=== PATIENT | female | born 1955 | race Asian ===

== ENCOUNTER 2019-02-16 09:33 | Emergency (ER) | payer OTHER ==
[~2019-02-16] VITALS: Ht 152.4 cm; Wt 54.4 kg
[~2019-02-16 09:33] MED LIST: BENA20TA14; METF-370; OMEP20TA44 OR; SIMV10TA73; TRAM50TA2 OR
[2019-02-16] MEDS ORDERED: ACETAMINOPHEN 500 MG TAB PO ONE ×2 (09:43→10:15)
[2019-02-16 10:22] VITALS: BP 132/92
[2019-02-16] MEDS ORDERED: cefTRIAXone SOD 1,000 MG VL IM ONE (10:45)
== END 2019-02-16 11:36 | disposition home or self-care (01) ==
LOC: ER 09:33
DX: H66.92 Otitis media, unspecified, left ear (principal); J02.9 Acute pharyngitis, unspecified; R11.2 Nausea with vomiting, unspecified; E11.9 Type 2 diabetes mellitus without complications; E78.5 Hyperlipidemia, unspecified; I10 Essential (primary) hypertension; Z79.899 Other long term (current) drug therapy; Z79.84 Long term (current) use of oral hypoglycemic drugs
CPT/HCPCS: 81002; 96372; 99283; J0696

== ENCOUNTER 2019-05-27 23:09 | Emergency (ER) | payer OTHER ==
[~2019-05-27] VITALS: Ht 147.3 cm; Wt 52.6 kg
[2019-05-27] MEDS ORDERED: NIFEdipine 10 MG CAP PO ONE ×2 (23:30)
[2019-05-27 23:45] LABS: Basophils # (auto) 0 uL; Basophils % (auto) 0.3 % (0.0-2.0); Eosinophils # (auto) 0.2 uL; Eosinophils % (auto) 2.6 % (0.0-7.0); Hematocrit 39.7 % (36.0-46.0); Lymphocytes # (auto) 4.1 uL; Mean Corpuscular Hemoglobin 31.2 pg (28.0-32.0); Mean Corpuscular Hgb Conc. 32.8 g/dL (32.0-36.0); Monocytes # (auto) 0.5 uL; Monocytes % (auto) 5.9 % (0.0-12.0); Neutrophils # (auto) 3.3 uL; Neutrophils % (auto) 40.2 % (37.0-80.0); Platelet Count (auto) 432 10^3/uL (140-450); Red Blood Cells 4.17 10^6/uL (4.0-5.20); Red Cell Distribution Width 13.6 % (11.8-14.3); White Blood Cell 8.1 10^3/uL (4.4-10.8)
[2019-05-28 00:01] LABS: INR < 0.93 (0.9-1.15); Partial Thromboplastin Time 25.1 sec (23.64-32.05)
[2019-05-28 00:03] LABS: Alanine Aminotransferase 29 U/L (13-56); Albumin 4.1 g/dL (3.4-5.0); Anion Gap 9 (5-15); Aspartate Aminotransferase 19 U/L (15-37); BUN/Creatinine Ratio 18.8; Blood Urea Nitrogen 18 mg/dL (7-18); Calcium 9.2 mg/dL (8.5-10.1); Carbon Dioxide 28 mmol/L (21-32); Chloride 105 mmol/L (98-107); GFR African American 75 mL/min; GFR Non-African American 62 mL/min; Glucose 91 mg/dL (74-106); Magnesium 2.2 mg/dL (1.6-2.6); Potassium 3.7 mmol/L (3.5-5.1); Sodium 142 mmol/L (136-145)
[2019-05-28 00:08] LABS: Alkaline Phosphatase 96 U/L (45-117); Bilirubin, Total 0.4 mg/dL (0.2-1.0); Total Protein 8.5 g/dL (6.4-8.2)
[2019-05-28] MEDS ORDERED: ACETAMINOPHEN/CODEINE#3 (300/30mg) TAB PO ONE (01:15)
[2019-05-28 01:45] LABS: Urine WBC None Seen /hpf (0 - 5)
[2019-05-28 02:03] LABS: Urine Bacteria NONE SEEN /hpf (None Seen); Urine Blood Negative /uL (Negative); Urine Specific Gravity 1.006 (1.001-1.035)
[2019-05-28 03:00] VITALS: BP 140/108
== END 2019-05-28 03:00 | disposition home or self-care (01) ==
LOC: ER 23:11
DX: I10 Essential (primary) hypertension (principal); R51 Headache; E11.9 Type 2 diabetes mellitus without complications; E78.5 Hyperlipidemia, unspecified; Z79.899 Other long term (current) drug therapy
CPT/HCPCS: 36415; 71046; 80053; 81001; 82962; 83735; 83880; 84484; 85025; 85610; 85730; 93005

== ENCOUNTER 2021-01-08 19:00 | Inpatient (IN) | payer OTHER ==
[~2021-01-08] VITALS: Ht 149.9 cm; Wt 49.6 kg
[~2021-01-08 19:00] MED LIST changes: +SIMV10TA2; -SIMV10TA73
[2021-01-08 20:04] LABS: Basophils # (auto) 0 10 ^3/uL (0-0.2); Basophils % (auto) 0.4 % (0.0-2.0); Eosinophils # (auto) 0.1 10 ^3/uL (0-0.8); Eosinophils % (auto) 0.7 % (0.0-7.0); Hematocrit 42.4 % (36.0-46.0); Hemoglobin 14.1 g/dL (12.2-16.2); Lymphocytes % (auto) 49.9 % (10.0-50.0); Mean Corpuscular Hemoglobin 31.7 pg (28.0-32.0); Mean Corpuscular Hgb Conc. 33.3 g/dL (32.0-36.0); Mean Corpuscular Volume 95.4 fL (80.0-100.0); Monocytes # (auto) 0.5 10 ^3/uL (0-1.3); Neutrophils # (auto) 3.5 10 ^3/uL (1.6-8.6); Nucleated Red Blood Cells % 0.1 %; Platelet Count (auto) 338 10^3/uL (140-450); Red Blood Cells 4.45 10^6/uL (4.0-5.20); Red Cell Distribution Width 12.7 % (11.8-14.3)
[2021-01-08 20:29] LABS: Albumin 4.3 g/dL (3.4-5.0); Calcium 9.7 mg/dL (8.5-10.1); Potassium 3.6 mmol/L (3.5-5.1)
[2021-01-08 20:32] LABS: Lactic Acid w/Reflex 2.5 mmol/L (0.4-2.0)
[2021-01-08 20:33] LABS: BUN/Creatinine Ratio 7.3; Bilirubin, Total 0.6 mg/dL (0.2-1.0); Total Protein 8.5 g/dL (6.4-8.2)
[2021-01-08 21:30] LABS: Urine Bacteria NONE SEEN /hpf (None Seen); Urine Blood Negative /uL (Negative); Urine Mucus FEW (None Seen); Urine Specific Gravity 1.023 (1.001-1.035); Urine WBC 4 /hpf (0 - 5)
[2021-01-08] MEDS ORDERED: MAGNESIUM CITRATE SOLUTION 300 ML BTL PO ONE (21:30)
[2021-01-08] MEDS ORDERED: cefTRIAXone 1GM/50ML D5W 50 ML IV ONE (23:30)
[2021-01-08] MEDS ORDERED: InsuLIN REG 1unit/0.01ml Soln (100units/ml) IV ONE (23:30)
[2021-01-09] MEDS ORDERED: MORPHINE SULF INJ 2 MG/ML SYRINGE 1ML IV PRN
[2021-01-09] MEDS ORDERED: FLEET ENEMA(ADULT) 135 ML PR ONE
[2021-01-09] MEDS ORDERED: DEXTROSE (50%) 50ML SYRG IV PRN
[2021-01-09] MEDS ORDERED: ONDANSETRON HCL 4 MG/2 ML VIAL IV PRN
[2021-01-09] MEDS ORDERED: NITROGLYCERIN 0.4 MG SL TAB SL PRN
[2021-01-09] MEDS ORDERED: ACETAMINOPHEN 325 MG TAB PO PRN
[2021-01-09] MEDS: SODIUM CHLORIDE 0.9% 1,000 ML IV SCH ×4 (00:09→17:57)
[2021-01-09] MEDS: HYDROcodone-ACET 5/325MG TAB PO PRN ×3 (02:47→22:10)
[2021-01-09 05:36] LABS: Basophils # (auto) 0 10 ^3/uL (0-0.2); Basophils % (auto) 0.6 % (0.0-2.0); Eosinophils # (auto) 0 10 ^3/uL (0-0.8); Eosinophils % (auto) 0.3 % (0.0-7.0); Hematocrit 37.3 % (36.0-46.0); Hemoglobin 12.7 g/dL (12.2-16.2); Lymphocytes # (auto) 2.5 10 ^3/uL (0.4-5.4); Lymphocytes % (auto) 36.4 % (10.0-50.0); Mean Corpuscular Hemoglobin 32.3 pg (28.0-32.0); Mean Corpuscular Hgb Conc. 34.2 g/dL (32.0-36.0); Mean Corpuscular Volume 94.6 fL (80.0-100.0); Monocytes # (auto) 0.4 10 ^3/uL (0-1.3); Monocytes % (auto) 5.4 % (0.0-12.0); Neutrophils % (auto) 57.3 % (37.0-80.0); Platelet Count (auto) 301 10^3/uL (140-450); Red Blood Cells 3.94 10^6/uL (4.0-5.20); Red Cell Distribution Width 12.4 % (11.8-14.3)
[2021-01-09 05:55] LABS: Albumin 3.6 g/dL (3.4-5.0); Calcium 8.8 mg/dL (8.5-10.1); Potassium 3.8 mmol/L (3.5-5.1)
[2021-01-09 06:00] LABS: Bilirubin, Total 0.5 mg/dL (0.2-1.0); Total Protein 7.1 g/dL (6.4-8.2)
[2021-01-09] MEDS: InsuLIN REG 1unit/0.01ml Soln (100units/ml) SC SCH ×3 (07:56→17:59)
[2021-01-09] MEDS: ACCU-CHEK COMFORT CURVE STRIP VI SCH ×4 (07:57→22:11)
[2021-01-09] MEDS: hydrALAZINE HCL 20 MG/ML VL IV PRN ×2 (07:58→22:12)
[2021-01-09] MEDS: INSULIN LANTUS (GLARGINE) 1 /0.01ml (100units/ml) SC SCH ×2 (08:13→22:12)
[2021-01-09 09:02] LABS: BUN/Creatinine Ratio 10.8
[2021-01-09] MEDS: ASCORBIC ACID 500 MG TAB PO SCH ×2 (09:40→22:11)
[2021-01-09] MEDS: MULTIPLE VITAMIN TAB PO SCH (09:40)
[2021-01-09] MEDS: FAMOTIDINE 20 MG TAB PO SCH ×2 (09:40→22:11)
[2021-01-09] MEDS: DOCUSATE SOD 100 MG CAP PO SCH ×2 (09:40→22:11)
[2021-01-09] MEDS: ZINC SULFATE 220mg CAP or TAB PO SCH (09:40)
[2021-01-09] MEDS: cefTRIAXone 1GM/50ML D5W 50 ML IV SCH (09:40)
[2021-01-09] MEDS: ENOXAPARIN SOD 30 MG/0.3 ML SYRINGE SC SCH (09:40)
[2021-01-09] MEDS ORDERED: BENAZEPRIL HCL 10 MG TAB PO ONE (11:15)
[2021-01-09] MEDS ORDERED: LACTULOSE 20Gm/30ML SOLN PO ONE (12:00)
[2021-01-09 13:21] VITALS: BP 115/78
[2021-01-09 13:30] VITALS: BP 115/78
[2021-01-09] MEDS ORDERED: INFLUENZA QUAD 2020-2021 0.5 ML SYRG IM ONE ×2 (13:45→14:00)
[2021-01-09 17:25] VITALS: BP 138/80
[2021-01-09 22:00] VITALS: BP 158/83
[2021-01-09] MEDS ORDERED: InsuLIN REG 1unit/0.01ml Soln (100units/ml) SC SCH (22:00)
[2021-01-09] MEDS ORDERED: ATORVASTATIN 20 MG TAB PO SCH (22:00)
[2021-01-09 23:12] VITALS: BP 141/75
[2021-01-10 05:00] VITALS: BP 122/68
[2021-01-10] MEDS: ACCU-CHEK COMFORT CURVE STRIP VI SCH (06:00)
[2021-01-10] MEDS: HYDROcodone-ACET 5/325MG TAB PO PRN (06:01)
[2021-01-10] MEDS: InsuLIN REG 1unit/0.01ml Soln (100units/ml) SC SCH (06:03)
[2021-01-10] MEDS: INSULIN LANTUS (GLARGINE) 1 /0.01ml (100units/ml) SC SCH (06:06)
[2021-01-10 08:00] VITALS: BP 134/79
[2021-01-10 08:30] VITALS: BP 134/79
[2021-01-10] MEDS ORDERED: BENAZEPRIL HCL 10 MG TAB PO SCH (10:00)
[2021-01-10] MEDS: cefTRIAXone 1GM/50ML D5W 50 ML IV SCH (10:26)
[2021-01-10] MEDS: FAMOTIDINE 20 MG TAB PO SCH (10:27)
[2021-01-10] MEDS: MULTIPLE VITAMIN TAB PO SCH (10:27)
[2021-01-10] MEDS: ZINC SULFATE 220mg CAP or TAB PO SCH (10:27)
[2021-01-10] MEDS: DOCUSATE SOD 100 MG CAP PO SCH (10:27)
[2021-01-10] MEDS: SODIUM CHLORIDE 0.9% 1,000 ML IV SCH (10:27)
[2021-01-10] MEDS: ASCORBIC ACID 500 MG TAB PO SCH (10:27)
[2021-01-10] MEDS: ENOXAPARIN SOD 30 MG/0.3 ML SYRINGE SC SCH (10:28)
== END 2021-01-10 11:30 | disposition home or self-care (01) | DRG 247 ==
LOC: ER 19:00 → TELE 23:59 → WEST WING 01-09 12:40
PROVIDERS: ADMIT Nurse Practitioner Family; ATTEND Nurse Practitioner Family
DX: K56.41 Fecal impaction (principal); E11.40 Type 2 diabetes mellitus with diabetic neuropathy, unspecified; E11.65 Type 2 diabetes mellitus with hyperglycemia; E78.00 Pure hypercholesterolemia, unspecified; E11.21 Type 2 diabetes mellitus with diabetic nephropathy; E78.5 Hyperlipidemia, unspecified; E86.0 Dehydration; Z20.822 Contact with and (suspected) exposure to COVID-19; N28.9 Disorder of kidney and ureter, unspecified; I10 Essential (primary) hypertension; E87.2 Acidosis
CPT/HCPCS: 36415; 74176; 80053; 81001; 82150; 82962; 83036; 83605; 83690; 85025; 87040; 87426; 93005; 96365; 96366; 96368; 96372; G0378; J0696; J1815